=== PATIENT | female | born 1990 | race Caucasian/White ===

== ENCOUNTER 2018-06-20 14:21 | Emergency (ER) | payer OTHER ==
--- NOTE | 2018-06-20 15:42 | ED ---
General Adult HPI - General Chief complaint: Headache Stated complaint: Headache, 14 weeks preg Source: patient, RN notes reviewed, old records reviewed Mode of arrival: ambulatory Limitations: no limitations - History of Present Illness Initial comments: 28-year-old patient who is 14 weeks , and history of headache disorder presents to ED with exacerbation of headaches. Pt states she has a past medical history of both migraine and tension headaches. Patient states that the last 2 days she has been having moderately intense headaches. Patient states that the headaches are located on the right hemisphere of her skull. Patient states the headaches have begun at approximately 6 PM last 2 nights and continued throughout the night - were resolved upon awakening in am. Patient states that she has had some success with Tylenol in improving her headaches. Patient states that the headaches have a moderate onset but denies thunderclap. Patient has had some nausea with headaches but denies vomiting or diarrhea. Patient denies any new onset upper or lower extremity weakness, facial droop, slurred speech. Patient denies any abdominal pain, vaginal bleeding or discharge. Patient denies all other complaints. Systemic: Pt denies fatigue, myalgia, fever/chills, rash. Pt denies weakness, night sweats, weight loss. Neuro: Pt denies syncope or pre-syncope. HEENT: Pt denies ocular discharge or irritation, otalgia, rhinorrhea, pharyngitis or notable lymphadenopathy. Cardiopulmonary: Pt denies chest pain, SOB, heart palpitations, dyspnea on exertion. Abdominal/GI: Pt denies abdominal pain, n/v/d. : Pt denies dysuria, burning w/ urination, frequency/urgency. Denies new onset urinary or bowel incontinence. MSK: Pt denies myalgia, loss of strength or function in extremities. Neuro: Pt denies new onset weakness, paresthesias. - Related Data Home Medications Medication Instructions Recorded Confirmed Acetaminophen Tab [Tylenol Tab] 1,000 mg PO Q6HR PRN 06/20/18 06/20/18 Allergies Allergy/AdvReac Type Severity Reaction Status Date / Time red dye Allergy Unknown Verified 06/20/18 14:37 Review of Systems ROS Statement: Those systems with pertinent positive or pertinent negative responses have been documented in the HPI. ROS Other: All systems not noted in ROS Statement are negative. Past Medical History Past Medical History: No Reported History History of Any Multi-Drug Resistant Organisms: None Reported Past Surgical History: Section, Orthopedic Surgery Past Psychological History: No Psychological Hx Reported Smoking Status: Never smoker Past Alcohol Use History: None Reported Past Drug Use History: Marijuana General Exam - General Exam Comments Initial Comments: Constitutional: NAD, AOX3, Pt has pleasant affect. HEENT: NC/AT, trachea midline, neck supple, no lymphadenopathy. Posterior pharynx non erythematous, without exudates. External ears appear normal, without discharge. Mucous membranes moist. Eyes PERRLA, EOM intact. There is no scleral icterus. No pallor noted. Cardiopulmonary: RRR, no murmurs, rubs or gallops, no JVD noted. Lungs CTAB in anterior and posterior f[place]. No peripheral edema. Abdominal exam: Abdomen soft and non-distended. Abdomen non-tender to palpation in all 4 quadrants. Bowel sounds active in LLQ. No hepatosplenomegaly. No ecchymosis Neuro: CN II-XII intact. No nuchal rigidity. No focal deficit, no facial droop. MSK: No posterior calf tenderness bilaterally, homans sign negative bilaterally. Posterior tibialis and radial pulse +2 bilaterally. Sensation intact in upper and lower extremities. Full active ROM in upper and lower extremities, 5/5 stregnth. Limitations: no limitations Course Vital Signs 06/20/18 06/20/18 06/20/18 14:26 15:29 17:13 Temperature 98.2 F 98.3 F Pulse Rate 90 90 77 Respiratory 16 18 18 Rate Blood Pressure 109/72 100/56 103/56 O2 Sat by Pulse 100 99 99 Oximetry Medical Decision Making - Medical Decision Making 28-year-old patient who is 14 weeks , and history of headache disorder presents to ED with exacerbation of headaches. Patient states that the last 2 days she has been having moderately intense headaches. Patient states that the headaches are located on the right hemisphere of her skull. Patient states the headaches have begun at approximately 6 PM last 2 nights and continued throughout the night - were resolved upon awakening in am. Patient states that the headaches have a moderate onset but denies thunderclap. Pt had nausea but no v/d. Patient denies any new onset upper or lower extremity weakness, facial droop, slurred speech. Patient denies any abdominal pain, vaginal bleeding or discharge. Patient denies all other complaints. Pt VSS. Physical exam displayed normal neurologic examination, no pathologic findings. Shared decision making was conducted with patient, patient would not like to persue a CT. Patient was diagnosed with tension headache. Pt was seen and evaluated by Dr. Holcomb. Pt to continue to use tylenol for headache if necessary. Pt to f/u with coil maker tomorrow. Pt referred to neurology for further evaluation. Pt educated extensively about s/sx in which to return to ED, pt to return to ED if new s/sx develop or if condition worsens in anyway. Disposition Clinical Impression: Tension headache Disposition: HOME SELF-CARE Condition: Good Instructions: Tension Headache (ED) Additional Instructions: Patient to adhere to previously discussed treatment plan and will take medication(s) as directed. Patient to follow up with PCP in 1-2 days. Patient to return to ED if symptoms do not improve. Is patient prescribed a controlled substance at d/c from ED?: No Referrals: Seamus Valdez MD [Medical Doctor] - 1-2 days None,Stated [Primary Care Provider] - 1-2 days Linsey Hu MD [STAFF PHYSICIAN] - 1-2 days [facility] - 1-2 days Time of Disposition: 17:02
[2018-06-20 16:17] VITALS: RESP 18
[2018-06-20 17:15] VITALS: BP 103/56; PULSE 77; TEMP 98.3
== END 2018-06-20 17:13 | disposition home or self-care (01) ==
LOC: EC 14:21
DX: O99.352 Diseases of the nervous system complicating pregnancy, second trimester (principal); G44.209 Tension-type headache, unspecified, not intractable; Z3A.14 14 weeks gestation of pregnancy; Z91.09 Other allergy status, other than to drugs and biological substances
CPT/HCPCS: 99283

== ENCOUNTER 2021-03-29 07:57 | Emergency (ER) | payer OTHER ==
[2021-03-29 08:08] VITALS: BP 111/78; PULSE 100; RESP 18; TEMP 98.5
--- NOTE | 2021-03-29 08:46 | ED ---
General Adult HPI - General Chief complaint: Altered Mental Status Stated complaint: Mental health Time Seen by Provider: 03/29/21 08:22 Source: patient, RN notes reviewed, old records reviewed Mode of arrival: ambulatory Limitations: no limitations - History of Present Illness Initial comments: 30-year-old female presenting for mental health evaluation. Patient states that she had a breakdown this morning. She has 4 small children, and the stresses of being a mother had gone to a breaking point this morning. She had a verbal altercation with her children. There is no physical violence. She is calm and cooperative at the time my evaluation. She is tearful and regretful. She states that she has had some intermittent thoughts of suicide. No specific plan. She states that the thoughts are mainly that her children would be better off without her. No physical complaints. No chronic medical conditions. - Related Data Home Medications Medication Instructions Recorded Confirmed Acetaminophen Tab [Tylenol Tab] 1,000 mg PO Q6HR PRN 06/20/18 06/20/18 Allergies Allergy/AdvReac Type Severity Reaction Status Date / Time red dye Allergy Unknown Verified 03/29/21 08:08 Review of Systems ROS Statement: Those systems with pertinent positive or pertinent negative responses have been documented in the HPI. ROS Other: All systems not noted in ROS Statement are negative. Past Medical History Past Medical History: No Reported History History of Any Multi-Drug Resistant Organisms: None Reported Past Surgical History: Section, Orthopedic Surgery Past Psychological History: No Psychological Hx Reported Smoking Status: Never smoker Past Alcohol Use History: None Reported Past Drug Use History: Marijuana General Exam Limitations: no limitations General appearance: alert, in no apparent distress Head exam: Present: atraumatic, normocephalic Eye exam: Present: normal appearance, PERRL ENT exam: Present: normal exam Neck exam: Present: normal inspection. Absent: tenderness, meningismus Respiratory exam: Present: normal lung sounds bilaterally. Absent: respiratory distress, wheezes Cardiovascular Exam: Present: regular rate, normal rhythm GI/Abdominal exam: Present: soft. Absent: distended, tenderness Extremities exam: Present: normal inspection Neurological exam: Present: alert, oriented X3, CN II-XII intact. Absent: motor sensory deficit Psychiatric exam: Present: depressed, anxious. Absent: suicidal ideation Skin exam: Present: warm, dry, intact. Absent: cyanosis, diaphoretic Course Vital Signs 03/29/21 08:04 Temperature 98.5 F Pulse Rate 100 Respiratory 18 Rate Blood Pressure 111/78 O2 Sat by Pulse 99 Oximetry - Reevaluation(s) Reevaluation #1: 03/29/21 08:46 Patient cleared for EPS evaluation. Medical Decision Making - Medical Decision Making Patient had been evaluated by EPS, felt to be safe for discharge. I agree with this. The patient does have some increased stress in her life currently she is not actively suicidal. She is calm, cooperative throughout her stay in the emergency department. She's given outpatient referrals. Return parameters were discussed. She contracts to safety. - Lab Data Lab Results 03/29/21 Range/Units 09:07 Urine Opiates Screen Not Detected (NotDetected) Ur Oxycodone Screen Not Detected (NotDetected) Urine Methadone Screen Not Detected (NotDetected) Ur Propoxyphene Screen Not Detected (NotDetected) Ur Barbiturates Screen Not Detected (NotDetected) U Tricyclic Antidepress Not Detected (NotDetected) Ur Phencyclidine Scrn Not Detected (NotDetected) Ur Amphetamines Screen Not Detected (NotDetected) U Methamphetamines Scrn Not Detected (NotDetected) U Benzodiazepines Scrn Not Detected (NotDetected) Urine Cocaine Screen Not Detected (NotDetected) U Marijuana (THC) Screen Detected H (NotDetected) Disposition Clinical Impression: Stress reaction Disposition: HOME SELF-CARE Condition: Good Instructions (If sedation given, give patient instructions): Stress (ED) Additional Instructions: Please follow up with her primary care physician. Please use resources p rovided. Please return with any worsening or changing symptoms. Is patient prescribed a controlled substance at d/c from ED?: No Referrals: None,Stated [Primary Care Provider] - 1-2 days Time of Disposition: 10:17
[2021-03-29 09:25] LABS: Amphetamine Screen,Urine Not Detected (NotDetected); Barbiturate Screen,Urine Not Detected (NotDetected); Benzodiazepines Screen,Urine Not Detected (NotDetected); Cocaine Screen,Urine Not Detected (NotDetected); Methadone Screen, Urine Not Detected (NotDetected); Opiate Screen,Urine Not Detected (NotDetected); Oxycodone Screen, Urine Not Detected (NotDetected); Phencyclidine Screen,Urine Not Detected (NotDetected); Tricyclic Antidepressant,Urine Not Detected (NotDetected); Urn Cannabinoid Scrn Detected (NotDetected)
== END 2021-03-29 10:32 | disposition home or self-care (01) ==
LOC: EC 07:57
DX: F43.9 Reaction to severe stress, unspecified (principal); F12.90 Cannabis use, unspecified, uncomplicated
CPT/HCPCS: 80306; 82075; 99285